=== PATIENT | male | born 1975 | race Hispanic/Latino ===

== ENCOUNTER 2018-02-20 11:14 | Emergency (ER) | payer OTHER ==
[~2018-02-20] VITALS: Ht 170.2 cm; Wt 117.9 kg
[2018-02-20] MEDS ORDERED: MECLIZINE HCL 12.5 MG TAB PO ONE (11:45)
[2018-02-20] MEDS ORDERED: KETOROLAC TROMETHAMINE 60 MG/2 ML VIAL IM ONE (11:45)
[2018-02-20] MEDS ORDERED: BACLOFEN10 MG PO (11:57)
[2018-02-20] MEDS ORDERED: SULFASALAZINE500 MG PO (11:59)
[2018-02-20] MEDS ORDERED: ULTRAM50 MG PO (11:59)
[2018-02-20] MEDS ORDERED: GABAPENTIN300 MG PO (11:59)
[2018-02-20] MEDS ORDERED: PIROXICAM20 MG (11:59)
[2018-02-20] MEDS ORDERED: CETIRIZINE HCL10 MG (11:59)
[2018-02-20] MEDS ORDERED: HUMIRA40 MG/0.1 (12:00)
[2018-02-20 13:49] VITALS: BP 122/68
== END 2018-02-20 13:45 | disposition home or self-care (01) ==
LOC: FSED 11:14
DX: R42 Dizziness and giddiness (principal); H81.11 Benign paroxysmal vertigo, right ear
CPT/HCPCS: 82553; 82948; 84484; 93005; 99282; J1885